=== PATIENT | female | born 1985 | race Caucasian/White ===

== ENCOUNTER 2018-07-24 12:12 | Emergency (ER) | payer OTHER ==
[2018-07-24 12:31] VITALS: RESP 18
[2018-07-24] MEDS ORDERED: ACETAMINOPHEN TAB 500 MG TAB PO STA (12:58)
--- NOTE | 2018-07-24 12:59 | ED ---
General Adult HPI - General Chief complaint: Extremity Injury, Upper Stated complaint: fall, shoulder injury Source: patient, family, RN notes reviewed Mode of arrival: wheelchair Limitations: no limitations - History of Present Illness Initial comments: Patient is a 32-year-old female who presents the emergency department with complaint of right shoulder pain that happened around 5 AM today when she slipped and fell down a couple stair steps. Denies head injury or loss of consciousness. Reports being unable to move her right shoulder due to pain. Denies taking anything for pain today. Patient denies any recent fever, chills, shortness of breath, chest pain, neck pain, back pain, abdominal pain, nausea or vomiting, numbness or tingling, headaches or visual changes, or any other complaints. - Related Data Previous Rx's Medication Instructions Recorded Acetaminophen Tab [Tylenol] 1,000 mg PO TID PRN 5 Days tablet 07/24/18 Hydrocodone/Acetaminophen [[place] 1 tab PO Q6HR PRN #8 tab 07/24/18 5-325] Allergies Allergy/AdvReac Type Severity Reaction Status Date / Time lansoprazole [From Prevacid] Allergy Unknown Verified 07/24/18 12:27 morphine Allergy Unknown Verified 07/24/18 12:27 omeprazole [From Prilosec] Allergy Unknown Verified 07/24/18 12:27 Sulfa (Sulfonamide Allergy Unknown Verified 07/24/18 12:27 Antibiotics) Review of Systems ROS Statement: Those systems with pertinent positive or pertinent negative responses have been documented in the HPI. ROS Other: All systems not noted in ROS Statement are negative. Past Medical History Past Medical History: No Reported History History of Any Multi-Drug Resistant Organisms: None Reported Additional Past Surgical History / Comment(s): wisdom teeth Past Psychological History: Anxiety, Depression Smoking Status: Current every day smoker Past Alcohol Use History: Occasional Past Drug Use History: Marijuana General Exam Limitations: no limitations General appearance: alert Head exam: Present: atraumatic, normocephalic Eye exam: Present: normal appearance Respiratory exam: Present: normal lung sounds bilaterally. Absent: wheezes, rales, rhonchi Cardiovascular Exam: Present: regular rate, normal rhythm Extremities exam: Present: tenderness, normal capillary refill, other (Radial pulses palpable and strong bilaterally. Sensation intact.) Neurological exam: Present: alert, oriented X3 Skin exam: Present: warm, dry Course Vital Signs 07/24/18 07/24/18 12:27 15:19 Temperature 98 F 97.8 F Pulse Rate 81 76 Respiratory 18 18 Rate Blood Pressure 127/86 128/76 O2 Sat by Pulse 99 96 Oximetry Medical Decision Making - Medical Decision Making X-ray of the right shoulder reveals complete AC joint separation. No fracture. Patient placed in a sling here. Will refer to orthopedics. Patient reports that she does not have a true allergy to morphine; she becomes nauseous. Will prescribe Tylenol and [place]. Opioid Start Talking form was completed with the patient. The patient verbalized understanding. Will refer patient to a PCP. Case discussed in detail with attending physician Dr. Villalba. Disposition Clinical Impression: Acromioclavicular joint separation Disposition: HOME SELF-CARE Condition: Good Instructions (If sedation given, give patient instructions): Acromioclavicular Separation (ED) Additional Instructions: Follow-up with your PCP in 1 to 2 days. Follow up with orthopedics tomorrow. Do not drive or operate machinery while taking [place]. Do not exceed 1000 mg in 4 hours or 4000 mg in 24 hours of acetaminophen. Return to the emergency department if your symptoms worsen or other concerns. Prescriptions: Acetaminophen Tab [Tylenol] 1,000 mg PO TID PRN 5 Days tablet PRN Reason: Pain Hydrocodone/Acetaminophen [[place] 5-325] 1 tab PO Q6HR PRN #8 tab PRN Reason: Pain Is patient prescribed a controlled substance at d/c from ED?: Yes When asked, does pt state using other controlled substances?: No If prescribed controlled substance>3 days was MAPS reviewed?: Prescribed <3 Days If opioid is for acute pain is fill amount 7 days or less?: Yes If Rx opioid, was Start Talking consent form obtained?: Yes Referrals: None,Stated [Primary Care Provider] - 1-2 days Walter Blue MD [REFERRING] - 1-2 days Haseeb Becker MD [STAFF PHYSICIAN] - 1-2 days Time of Disposition: 15:15
--- NOTE | 2018-07-24 13:16 | XR ---
EXAMINATION TYPE: XR shoulder complete RT DATE OF EXAM: 07/24/2018 CLINICAL HISTORY: pain TECHNIQUE: Three views of the right shoulder are obtained. COMPARISON: None FINDINGS: There is complete AC joint separation. Widening of the coracoclavicular space. No fracture evident at this time. Glenohumeral joint space is intact. IMPRESSION: 1. There is complete AC joint separation. ICD 10 NO FRACTURE, INITIAL EVALUATION
[2018-07-24 15:21] VITALS: BP 128/76; PULSE 76; TEMP 97.8
== END 2018-07-24 15:19 | disposition home or self-care (01) ==
LOC: EC 12:12
DX: S43.101A Unspecified dislocation of right acromioclavicular joint, initial encounter (principal); F17.200 Nicotine dependence, unspecified, uncomplicated; Z88.2 Allergy status to sulfonamides; Z88.5 Allergy status to narcotic agent; Z88.8 Allergy status to other drugs, medicaments and biological substances; W10.9XXA Fall (on) (from) unspecified stairs and steps, initial encounter; Y93.89 Activity, other specified
CPT/HCPCS: 99283; 73030; L3670

== ENCOUNTER → 2019-11-18 | Outpatient (CLI) | payer OTHER | END | disposition home or self-care (01) | LOC: LABWHC1 11:26 | PROVIDERS: ATTEND Internal Medicine | DX: Z11.59 Encounter for screening for other viral diseases (principal) ==

== ENCOUNTER 2019-11-20 10:46 | Day surgery (SDC) | payer OTHER ==
[2019-11-18 16:57] VITALS: BMI 28.1
[2019-11-20 11:08] VITALS: TEMP 98.1
[2019-11-20] MEDS: LACTATED RINGERS 1,000 ML IV SCH ×2 (11:11→11:21)
[2019-11-20] MEDS ORDERED: LIDOCAINE 1% (10MG/ML) FOR IV START INTRADERMA ONE (11:11)
[2019-11-20] MEDS ORDERED: LIDOCAINE 1% INJ 10MG/ML (20 ML MDV) ONE (11:23)
[2019-11-20] MEDS ORDERED: PROPOFOL 10 MG/ML 20 ML VIAL IV ONE (11:23)
--- NOTE | 2019-11-20 11:46 | P.PCN ---
Date of Procedure: 11/20/19 Description of Procedure: BRIEF HISTORY: Patient is a 34-year-old female presenting for EGD for evaluation of epigastric abdominal pain, nausea and GERD. Previous upper endoscopy approximately 10 years ago for similar symptoms. Currently on famotidine daily.. PROCEDURE PERFORMED: Esophagogastroduodenoscopy with biopsy. PREOPERATIVE DIAGNOSIS: Epigastric abdominal pain, nausea, GERD. ESTIMATED BLOOD LOSS: Minimal. IV sedation per anesthesia. PROCEDURE: After informed consent was obtained, the patient was brought into the endoscopy unit. IV sedation was administered by Anesthesia under continuous monitoring. Initially the Olympus GIF-190 video endoscope was inserted into the mouth. Esophagus intubated without any difficulty. It was gradually advanced into the stomach and duodenum and carefully examined. The bulb and the second part of the duodenum appeared normal, with biopsies taken. The scope at this time was withdrawn to the stomach, adequately insufflated with air, and upon careful examination, mucosa of the antrum, body, cardia and the fundus appeared normal, except for some mild scattered erythema in the antrum and body suggestive of mild gastritis with biopsies taken. The scope was then withdrawn into the esophagus. The GE junction was located at 37 cm from the incisors, with biopsies of the GE junction taken. The esophagus appeared normal. There were no erosions or ulcerations seen and the patient tolerated the procedure well. IMPRESSION: 1. Mild gastritis antrum and body, biopsied. 2. Biopsies of the duodenum and GE junction. RECOMMENDATIONS: The findings of this examination were discussed with the patient. Okay to resume diet. Okay to resume medications. GERD lifestyle modifications discussed. Await pathology from biopsies.
[2019-11-20 11:47] VITALS: RESP 17
[2019-11-20 11:55] VITALS: BP 114/74; PULSE 72
== END 2019-11-20 12:20 | disposition home or self-care (01) ==
LOC: ORWHC2ENDO 10:46
PROVIDERS: ATTEND Internal Medicine
DX: K29.50 Unspecified chronic gastritis without bleeding (principal); K21.0 Gastro-esophageal reflux disease with esophagitis; F41.9 Anxiety disorder, unspecified; F32.9 Major depressive disorder, single episode, unspecified; F17.210 Nicotine dependence, cigarettes, uncomplicated; Z79.899 Other long term (current) drug therapy; Z88.2 Allergy status to sulfonamides; Z88.5 Allergy status to narcotic agent; Z88.8 Allergy status to other drugs, medicaments and biological substances; Z98.818 Other dental procedure status; Z98.890 Other specified postprocedural states
CPT/HCPCS: 81025; 88305; 43239; J2001; J2704

== ENCOUNTER 2022-03-17 12:08 | Day surgery (SDC) | payer BC, OTHER ==
[2022-03-15 09:47] VITALS: BMI 27.3
[~2022-03-17 12:08] MED LIST: LACTATED RINGERS 1,000 ML IV SCH
[2022-03-17 13:02] VITALS: TEMP 96.7
[2022-03-17] MEDS ORDERED: LIDOCAINE 1% (10MG/ML) FOR IV START INTRADERMA ONE (13:09)
[2022-03-17] MEDS ORDERED: IV FLUID CONTINUATION 1,000 ML IV ONE (13:15)
[2022-03-17] MEDS ORDERED: PROPOFOL 10 MG/ML 20 ML VIAL IV ONE (13:38)
[2022-03-17] MEDS ORDERED: LIDOCAINE 2% INJ 20 MG/ML (2 ML VIAL) ONE (13:38)
[2022-03-17] MEDS ORDERED: fentaNYL (PF) 50 MCG/ML 2 ML AMP ONE (13:38)
[2022-03-17] MEDS ORDERED: MIDAZOLAM 2 MG/2 ML VIAL ONE (13:38)
--- NOTE | 2022-03-17 13:49 | P.PCN ---
Date of Procedure: 03/17/22 Procedure(s) Performed: BRIEF HISTORY: Patient is a 36-year-old, pleasant, white female scheduled for an upper endoscopy as a part of evaluation of nausea, epigastric and right upper quadrant abdominal pain for the last 3 months duration. She was started on Pepcid 20 mg twice daily and symptoms are significantly improved.. PROCEDURE PERFORMED: Esophagogastroduodenoscopy with biopsy. PREOPERATIVE DIAGNOSIS: Epigastric and right upper quadrant abdominal pain of 3 months duration associated with nausea.. IV sedation per anesthesia. PROCEDURE: After informed consent was obtained, the patient was brought into the endoscopy unit. IV sedation was administered by Anesthesia under continuous monitoring. Initially the Olympus GIF-140 video endoscope was inserted into the mouth. Esophagus intubated without any difficulty. It was gradually advanced into the stomach and duodenum and carefully examined. The bulb and the second part of the duodenum appeared normal. Biopsies were done from the duodenum to rule out celiac disease. The scope at this time was withdrawn to the stomach, adequately insufflated with air, and upon careful examination, mucosa of the antrum, had patchy areas of erythema and biopsies were done from this area. The body, cardia and the fundus appeared normal. The scope was then withdrawn into the esophagus. The GE junction was located at 39 cm from the incisors. The esophagus appeared normal. Abscesses were done from the distal esophagus. There were no erosions or ulcerations seen and the patient tolerated the procedure well. IMPRESSION: 1. Minimal antral gastritis. 2. No evidence of esophagitis or peptic ulcer disease. RECOMMENDATIONS: The findings of this examination were discussed with the patient well as her family. She was advised to continue with Pepcid 20 mg twice daily and follow antireflux measures..
[2022-03-17 14:02] VITALS: RESP 16
[2022-03-17 14:20] VITALS: BP 127/83; PULSE 63
== END 2022-03-17 14:50 | disposition home or self-care (01) ==
LOC: ORWHC2ENDO 12:08
PROVIDERS: ATTEND Internal Medicine Gastroenterology
DX: K29.50 Unspecified chronic gastritis without bleeding (principal); K21.00 Gastro-esophageal reflux disease with esophagitis, without bleeding; F12.90 Cannabis use, unspecified, uncomplicated; Z88.2 Allergy status to sulfonamides; Z88.8 Allergy status to other drugs, medicaments and biological substances
CPT/HCPCS: 81025; 43239; J2250; J3010; J2704; J2001; 88305